=== PATIENT | female | born 1965 | race Caucasian/White ===

== ENCOUNTER 2017-02-18 22:15 | Emergency (ER) | payer OTHER ==
[~2017-02-18] VITALS: Ht 157.5 cm; Wt 68.0 kg
[~2017-02-18 22:15] MED LIST: DIPH2%T PO; ESTR0.5T9 PO; FLUO-1 PO; RANI150 PO
[2017-02-18] MEDS ORDERED: PROPOFOL 200 MG/20 ML AMP IV ONE (22:16)
[2017-02-18] MEDS ORDERED: HYOS1SUB SL (22:24)
[2017-02-18 22:25] VITALS: BP 186/84; PULSE 82; RESP 18; TEMP 98.3; O2SAT 99
--- NOTE | 2017-02-18 22:41 | PD ---
HPI Chief Complaint: Foreign Body Time Seen by Provider: 22:35 Travel History International Travel<30 days: No Contact w/Intl Traveler<30days: No Traveled to known affect area: No History of Present Illness HPI The patient is a 51-year-old female with a history of esophageal strictures who took one bite of steak at 7:15 PM tonight and it stuck in the upper esophagus. Normally she takes hyoscyamine under the tongue and this allows the food bolus to go on. She took 3 hyoscyamine tablets tonight under her tongue and no relief. She has pain in the midsternal area where she feels the food bolus. 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 [facility] Past Medical History Diminished Hearing: No Gastrointestinal Disorders: Yes (esophageal strictures) Tetanus Vaccination: Unknown Influenza Vaccination: No ?: Not Menopausal: Yes Past Surgical History Section: Yes Hysterectomy: Yes Social History Alcohol Use: No Tobacco Use: No Substance Use: No Allergies-Medications (Allergen,Severity, Reaction): Coded Allergies: No Known Allergies (Verified , 02/18/17) Reported Meds & Prescriptions Reported Meds & Active Scripts Active Reported Hyoscyamine Odt (Hyoscyamine Sulfate) 0.125 Mg Subl 0.125 Mg SL Q4H Review of Systems Except as stated in HPI: all other systems reviewed are Neg Physical Exam Narrative GENERAL: The patient is alert, oriented 3 in moderate to severe distress with her esophageal discomfort. Her vital signs show blood pressure 186/84 but otherwise normal. SKIN: Focused skin assessment warm/dry. HEAD: Atraumatic. Normocephalic. EYES: Pupils equal and round. No scleral icterus. No injection or drainage. ENT: No nasal bleeding or discharge. Mucous membranes pink and moist. NECK: Trachea midline. No JVD. CARDIOVASCULAR: Regular rate and rhythm. No murmur appreciated. RESPIRATORY: No accessory muscle use. Clear to auscultation. Breath sounds equal bilaterally. GASTROINTESTINAL: Abdomen soft, non-tender, nondistended. Hepatic and splenic margins not palpable. MUSCULOSKELETAL: No obvious deformities. No clubbing. No cyanosis. No edema. NEUROLOGICAL: Awake and alert. No obvious cranial nerve deficits. Motor grossly within normal limits. Normal speech. PSYCHIATRIC: Appropriate mood and affect; insight and judgment normal. Data Data Last Documented VS Vital Signs Date Time Temp Pulse Resp B/P (MAP) Pulse Ox O2 Delivery O2 Flow Rate FiO2 02/19/17 01:51 78 18 98 02/19/17 01:42 Room Air 02/19/17 01:20 98.7 Orders Orders Glucagon Inj (Glucagon Inj) (02/18/17 22:45) Ondansetron Inj (Zofran Inj) (02/18/17 22:45) Complete Blood Count With Diff (02/18/17 23:24) Comprehensive Metabolic Panel (02/18/17 23:24) Chest, Pa & Lat (02/18/17 23:24) Ondansetron Inj (Zofran Inj) (02/18/17 23:30) Glucagon Inj (Glucagon Inj) (02/18/17 23:30) Consent (02/18/17 23:48) NPO (02/18/17 23:48) Panendo (02/19/17 ) Propofol 200 Mg/20 Ml Inj (Diprivan 200 (02/18/17 22:16) General/Pacu (02/19/17 ) Class Iv Pacu Ea 30 Min (02/19/17 ) Labs Laboratory Tests Test 02/18/17 22:45 White Blood Count 9.6 TH/MM3 Red Blood Count 4.85 MIL/MM3 Hemoglobin 13.5 GM/DL Hematocrit 41.1 % Mean Corpuscular Volume 84.8 FL Mean Corpuscular Hemoglobin 27.9 PG Mean Corpuscular Hemoglobin Concent 32.9 % Red Cell Distribution Width 12.6 % Platelet Count 303 TH/MM3 Mean Platelet Volume 7.9 FL Neutrophils (%) (Auto) 73.2 % Lymphocytes (%) (Auto) 18.6 % Monocytes (%) (Auto) 6.4 % Eosinophils (%) (Auto) 1.4 % Basophils (%) (Auto) 0.4 % Neutrophils # (Auto) 7.1 TH/MM3 Lymphocytes # (Auto) 1.8 TH/MM3 Monocytes # (Auto) 0.6 TH/MM3 Eosinophils # (Auto) 0.1 TH/MM3 Basophils # (Auto) 0.0 TH/MM3 CBC Comment DIFF FINAL Differential Comment Blood Urea Nitrogen 22 MG/DL Creatinine 0.75 MG/DL Random Glucose 119 MG/DL Total Protein 7.6 GM/DL Albumin 4.2 GM/DL Calcium Level 9.8 MG/DL Alkaline Phosphatase 98 U/L Aspartate Amino Transf (AST/SGOT) 11 U/L Alanine Aminotransferase (ALT/SGPT) 16 U/L Total Bilirubin 0.3 MG/DL Sodium Level 136 MEQ/L Potassium Level 3.7 MEQ/L Chloride Level 102 MEQ/L Carbon Dioxide Level 25.0 MEQ/L Anion Gap 9 MEQ/L Estimat Glomerular Filtration Rate 81 ML/MIN MDM Medical Decision Making Medical Screen Exam Complete: Yes Emergency Medical Condition: Yes Medical Record Reviewed: Yes Differential Diagnosis Esophageal obstruction, esophageal perforation-highly unlikely Narrative Course Dr. Medina took the patient up to the surgical suite here for upper endoscopy to remove the food bolus. The patient will return for brief observation in the emergency department. It is now 011 7 in the morning and the patient has had the food bolus removed by Dr. Medina. She did well and will be observed here before she goes home. It is now 0155 and the patient is leaving, he feels much better and wants to go home. Diagnosis Primary Impression: Esophageal foreign body Additional Impression: Esophageal stricture Additional Instructions: Follow-up with Dr. Medina, if you have problems return to the emergency department. Disposition: 01 DISCHARGE HOME Condition: Stable Denis Knott MD Feb 18, 2017 22:41
[2017-02-18] MEDS ORDERED: ONDANSETRON HCL 4 MG/2 ML VIAL IV ONE ×2 (22:45→23:30)
[2017-02-18] MEDS ORDERED: GLUCAGON 1 MG/ML VIAL IV PUSH ONE ×2 (22:45→23:30)
[2017-02-18 23:42] LABS: AUTOMATED NEUTROPHIL # 7.1 TH/MM3 (1.8-7.7); BASOPHIL % 0.4 % (0.0-2.0); EOSINOPHIL # 0.1 TH/MM3 (0-0.4); EOSINOPHIL % 1.4 % (0.0-4.0); HEMATOCRIT 41.1 % (35.0-46.0); HEMO FLAGS DIFF FINAL; LYMPH % 18.6 % (9.0-44.0); LYMPHOCYTE # 1.8 TH/MM3 (1.0-4.8); MEAN CELL VOLUME 84.8 FL (80.0-100.0); MEAN CORPUSCULAR HEMOGLOBIN 27.9 PG (27.0-34.0); MEAN CORPUSCULAR HGB CONC 32.9 % (32.0-36.0); MONO % 6.4 % (0.0-8.0); NEUT % 73.2 % (16.0-70.0); PLATELET COUNT 303 TH/MM3 (150-450); RED BLOOD COUNT 4.85 MIL/MM3 (4.00-5.30); RED CELL DISTRIBUTION WIDTH 12.6 % (11.6-17.2); WHITE BLOOD COUNT 9.6 TH/MM3 (4.0-11.0)
[2017-02-18 23:43] VITALS: BP 131/73; PULSE 78; RESP 18; O2SAT 99
[2017-02-18 23:48] LABS: CHLORIDE 102 MEQ/L (98-107); POTASSIUM 3.7 MEQ/L (3.5-5.1); SODIUM (NA) 136 MEQ/L (136-145)
[2017-02-18 23:52] LABS: ANION GAP 9 MEQ/L (5-15); BLOOD UREA NITROGEN 22 MG/DL (7-18)
[2017-02-18 23:55] LABS: ALT (GPT) 16 U/L (10-53); AST (GOT) 11 U/L (15-37); GLOMERULAR FILTRATION RATE 81 ML/MIN (>89)
[2017-02-18 23:57] LABS: TOTAL BILIRUBIN ADULT 0.3 MG/DL (0.2-1.0)
[2017-02-18 23:58] LABS: ALKALINE PHOSPHATASE 98 U/L (45-117)
--- NOTE | 2017-02-19 00:14 | RADRPT ---
EXAM DATE/TIME: 02/18/2017 23:44 [facility] COMPARISON: No previous studies available for comparison. INDICATIONS : Chest pain and vomiting. MEDICAL HISTORY : Esophageal spasm SURGICAL HISTORY : Breast reduction ENCOUNTER: Initial ACUITY: 1 day PAIN SCORE: 8/10 LOCATION: Bilateral chest FINDINGS: PA and lateral views of the chest demonstrate the lungs to be symmetrically aerated without evidence of mass, infiltrate or effusion. The cardiomediastinal contours are unremarkable. Osseous structure s are intact. CONCLUSION: No acute disease. Ray Hoang Jr., MD on February 19, 2017 at 0:12 Board Certified Radiologist. This report was verified electronically.
--- NOTE | 2017-02-19 01:03 | GIPROC ---
[facility] [address] [place] [address], [id number] EGD PROCEDURE REPORT EXAM DATE: 02/19/2017 PATIENT NAME: Joy Toledo MR #: [id number] BIRTHDATE: 1965 ATTENDING: Lino Medina MD ORDER #: [id number] SALVAGE DIVER: Mary Crooks RN and Justin Jordan MILITARY TECHNOLOGY MANAGER STATUS: outpatient INDICATIONS: The patient is a 51 yr old female here for an EGD due to foreign body removal from esophagus PROCEDURE PERFORMED: EGD w/ fb removal MEDICATIONS: None and Per Anesthesia. TOPICAL ANESTHETIC: none CONSENT: The patient understands the risks and benefits of the procedure and understands that these risks include, but are not limited to: sedation, allergic reaction, infection, perforation and/or bleeding. Alternative means of evaluation and treatment include, among others: physical exam, x-rays, and/or surgical intervention. The patient elects to proceed with this endoscopic procedure. medical equipment was checked for proper function. Hand hygiene and appropriate measures for infection prevention was taken. After the risks, benefits and alternatives of the procedure were thoroughly explained, Informed consent was verified, confirmed and timeout was successfully executed by the treatment team. The patient was anesthetized with topical anesthesia and the Pentax [id number] endoscope was introduced through the mouth and advanced to the second portion of the duodenum. Retroflexed views revealed revealed food The gastroscope was then slowly withdrawn and removed. ESOPHAGUS: There was a large amount of residual food seen in the entire esophagus. A moderately severe Schatzki ring was found at the gastroesophageal junction. Large amount of food including small and large meat boluses and some vegetable matter removed with a Elise net. STOMACH: There was a moderate amount of residual food. Otherwise unremarkable. DUODENUM: The duodenal mucosa appeared normal in the duodenal bulb and 2nd part duodenum. ADVERSE EVENTS: There were no complications. IMPRESSIONS: 1. There was a large amount of residual food seen in the entire esophagus 2. Schatzki ring was found at the gastroesophageal junction 3. Food residue 4. Normal duodenal mucosa in the duodenal bulb and 2nd part duodenum 5. Retroflexed views revealed revealed food RECOMMENDATIONS: 1. Liquid diet only next 12 hours then soft foods as tolerated. 2. Nexium 20 mg Q AM PATIENT CONDITION: stable DISPOSITION: Observation REPEAT EXAM: Return 2 weeks EGD with dilatation Lino Medina MD eSigned: Lino Medina MD 02/19/2017 1:03 AM cc: Jitendra Foster M.D. PATIENT NAME: Joy Toledo MR#: [id number]
[2017-02-19 01:20] VITALS: TEMP 98.7
[2017-02-19 01:42] VITALS: BP 121/72; PULSE 77; RESP 18; O2SAT 98
--- NOTE | 2017-02-19 06:36 | MB ---
cc: RYAN KEITH MD, LOUIS M. MD MORRISON,DENIS Ramesh M.D. DATE OF CONSULTATION: 02/18/2017 ROOM NUMBER: [facility] emergency room bed 11. REFERRING PHYSICIAN Dr. Denis Knott REASON FOR CONSULTATION: Esophageal obstruction, due to foreign body. HISTORY Joy is a pleasant 51-year-old female with a history of eosinophilic esophagitis and benign esophageal strictures who has had problems with dysphagia in the past and was dilated most recently in June of this year up to 45-Polish. She states that every once a while she will have the food get hung up in her esophagus typically meat and she will take sublingual Levsin and within about 15 minutes it will pass. She recently traveled to [place] for two and a half weeks and had no difficulties while there. This past week she has noticed more spasms in her esophagus and this evening she was out to dinner with her and ate one bite of steak and developed sudden dysphagia associated with upper chest pain. She cannot handle her saliva and is spitting everything out. She is nauseated and also having some retching but unable to bring up the food impaction. She has been given glucagon twice in the emergency department. She is in significant distress. SOCIAL HISTORY The patient is . She does not use tobacco her MEDICATIONS medications at home She takes Nexium 20 mg daily. Levsin 0.125 sublingual as needed Meloxicam started about two months ago for pain in her hip. ALLERGIES NO KNOWN DRUG ALLERGIES PAST SURGICAL HISTORY: She has had multiple surgeries including three C-sections, appendectomy and thyroidectomy. She also had a partial hysterectomy. She had breast reduction surgery last year. FAMILY HISTORY: Her family history remarkable for hypertension, diabetes mellitus. Her father had multiple myeloma mother had ulcerative colitis. REVIEW OF SYSTEMS Her review of systems is remarkable for the arthritic pain in her right hip. She ordinarily does not have any chest pain or shortness of breath. No heartburn. No weight loss. She does have the occasional dysphagia, mostly to red meat. Remainder the review of systems is negative. PHYSICAL EXAMINATION: IN GENERAL: Physical exam reveals a she well-developed female who is in obvious distress. She is sitting on the edge of her gurney with touching her upper chest and vomiting was mostly saliva into a basin. VITAL SIGNS: Her blood pressure is 186/84, pulse 82, respirations 18, temperature is 98.3 orally. Sclerae anicteric. NECK: Neck is without obvious masses but she does have some tenderness when pushing over her lower glottis. No crepitus or palpable masses. LUNGS: Lungs were clear to auscultation. HEART: Heart sounds are regular without murmur, gallop or rub. ABDOMEN: Abdomen is soft and nontender. EXTREMITIES: No cyanosis, clubbing or edema. SKIN: Warm and dry. PSYCHIATRIC: She is alert and oriented with and cooperative. LABORATORY FINDINGS: Lab work including CBC and CMP are pending. IMAGING: No imaging available. IMPRESSION Esophageal food obstruction. The patient most likely has a piece of steak lodged in the esophagus. She is in obvious distress and cannot swallow her saliva. PLAN I discussed with Cely and her proceeding with urgent upper endoscopy with esophageal foreign body removal and possible esophageal dilation. Will determine at the time of the procedure whether dilation can be done safely. I reviewed the risks of the procedure including the risks of sedation, bleeding, infection and perforation. Also the risk of aspiration and the possibility that anesthesia may intubate her for the procedure was also discussed. Alternatives such as imaging studies were also discussed. Her questions were answered and informed consent obtained. In the near future I suggested we have a discussion regarding other alternative treatments for eosinophilic esophagitis including topical steroids. MD NORMA Lyman/lázaro /11:42 PM /6:21 AM [place]
== END 2017-02-19 01:57 | disposition home or self-care (01) ==
LOC: PHED 22:15
DX: T18.128A Food in esophagus causing other injury, initial encounter (principal); R11.2 Nausea with vomiting, unspecified; M16.11 Unilateral primary osteoarthritis, right hip; Z79.899 Other long term (current) drug therapy
CPT/HCPCS: 43247; 71020; 80053; 85025; 96374; 96375; 96376; 99284; J1610; J2405